=== PATIENT | male | born 2000 | race Hispanic/Latino ===

== ENCOUNTER → 2022-12-09 | Outpatient (REF) | payer OTHER ==
[2022-12-09 18:32] LABS: APPEARANCE, URINE CLEAR (CLEAR); BACTERIA, URINE AUTO NEGATIVE (NEGATIVE); BILIRUBIN, URINE AUTO NEGATIVE (NEGATIVE); BLOOD, URINE BLOOD NEGATIVE (NEGATIVE); COLOR, URINE STRAW (YELLOW); GLUCOSE, URINE (UA) AUTO NEGATIVE (NEGATIVE); KETONE, URINE AUTO NEGATIVE (NEGATIVE); LEUKOCYTE ESTERASE, URINE AUTO NEGATIVE (NEGATIVE); NITRITE, URINE AUTO NEGATIVE (NEGATIVE); PROTEIN, URINE AUTO NEGATIVE (NEGATIVE); RBC, URINE AUTO 0 /HPF (0-3); SPECIFIC GRAVITY URINE AUTO 1.006 (1.002-1.035); SQUAMOUS EPITHELIAL CELL UR AU 0 /HPF (0-6); UROBILINOGEN, URINE AUTO 0.2 mg/dL (0.0-2.0); WBC, URINE AUTO 0 /HPF (0-3)
[2022-12-09 20:36] LABS: GC DNA AMPLIFICATION NEGATIVE (NEGATIVE)
== END ==
LOC: M LAB REF 18:15
PROVIDERS: ATTEND Physician Assistant
DX: J02.9 Acute pharyngitis, unspecified (principal)

== ENCOUNTER 2022-12-14 09:48 | Emergency (ER) | payer OTHER ==
[~2022-12-14] VITALS: Ht 165.1 cm; Wt 73.0 kg
[2022-12-14 09:49] VITALS: BP 130/75; TEMP 98.4; O2SAT 98
[2022-12-14 13:02] LABS: GC DNA AMPLIFICATION NEGATIVE (NEGATIVE)
== END 2022-12-14 11:49 | disposition left against medical advice (07) ==
LOC: M ED 09:48
DX: Z53.21 Procedure and treatment not carried out due to patient leaving prior to being seen by health care provider (principal)

== ENCOUNTER → 2022-12-16 | Outpatient (REF) | payer OTHER ==
[2022-12-16 19:55] LABS: GC DNA AMPLIFICATION NEGATIVE (NEGATIVE)
== END ==
LOC: M LAB REF 17:51
PROVIDERS: ATTEND Student in an Organized Health Care Education/Training Program
DX: R30.0 Dysuria (principal)

== ENCOUNTER 2023-01-20 07:08 | Emergency (ER) | payer OTHER ==
[~2023-01-20] VITALS: Ht 165.1 cm; Wt 72.0 kg
[2023-01-20 08:10] LABS: APPEARANCE, URINE CLEAR (CLEAR); BACTERIA, URINE AUTO NEGATIVE (NEGATIVE); BILIRUBIN, URINE AUTO NEGATIVE (NEGATIVE); BLOOD, URINE BLOOD NEGATIVE (NEGATIVE); COLOR, URINE COLORLESS (YELLOW); GLUCOSE, URINE (UA) AUTO NEGATIVE (NEGATIVE); KETONE, URINE AUTO NEGATIVE (NEGATIVE); LEUKOCYTE ESTERASE, URINE AUTO NEGATIVE (NEGATIVE); NITRITE, URINE AUTO NEGATIVE (NEGATIVE); PROTEIN, URINE AUTO NEGATIVE (NEGATIVE); RBC, URINE AUTO 0 /HPF (0-3); SPECIFIC GRAVITY URINE AUTO 1.003 (1.002-1.035); SQUAMOUS EPITHELIAL CELL UR AU 0 /HPF (0-6); UROBILINOGEN, URINE AUTO 0.2 mg/dL (0.0-2.0); WBC, URINE AUTO 0 /HPF (0-3)
[2023-01-20 10:24] LABS: GC DNA AMPLIFICATION NEGATIVE (NEGATIVE)
[2023-01-20 10:43] VITALS: BP 120/74; TEMP 98.4; O2SAT 100
== END 2023-01-20 10:43 | disposition home or self-care (01) ==
LOC: M ED 07:08
DX: N53.12 Painful ejaculation (principal)